=== PATIENT | female | born 1980 | race African-American/Black ===

== ENCOUNTER 2020-01-18 04:17 | Emergency (ER) | payer SELFPAY | END 2020-01-18 06:11 | disposition left against medical advice (07) | LOC: ER 04:17 | DX: I63.9 Cerebral infarction, unspecified (principal); M32.9 Systemic lupus erythematosus, unspecified; F41.9 Anxiety disorder, unspecified; Z85.43 Personal history of malignant neoplasm of ovary | CPT/HCPCS: 99281 ==